=== PATIENT | male | born 1955 | race Caucasian/White ===

== ENCOUNTER → 2023-07-11 14:44 | Outpatient (REF) | payer MEDICARE, MEDICAID, SELFPAY ==
[2023-07-11 17:36] LABS: % Basophils 0.1 % (0-2); % Eosinophils 2.7 % (0-6); % Immature Granulocytes 0.2 % (0-0.5); % Lymphocytes 31.5 % (20.5-51.1); % Monocytes 11.3 % (1.7-9.3); % Neutrophils 54.2 % (42.2-75.2); Absolute Eosinophils 0.2 10^3/uL (0-0.7); Absolute Lymphocytes 2.6 10^3/uL (1.2-3.4); Absolute Monocytes 0.9 10^3/uL (0.1-0.6); Absolute Neutrophils 4.5 10^3/uL (1.4-6.5); Hematocrit 48.9 % (39.0-52.0); Hemoglobin 16.4 g/dL (13.0-18.0); Mean Corp Hgb Conc. 33.5 g/dL (33.0-37.0); Mean Corpuscular Hgb 30.9 pg (27.0-31.0); Mean Corpuscular Volume 92.1 fL (80.0-94.0); Mean Platelet Volume 10.5 fL (7.4-10.4); Nucleated Red Blood Cells % 0 % (-); Platelet Count 189 10^3/uL (130-400); Red Blood Cell Count 5.31 10^6/uL (4.70-6.10); Red Cell Dist. Width 12.8 % (11.5-14.5); White Blood Cell Count 8.3 10^3/uL (4.8-10.8)
[2023-07-11 18:00] LABS: ALT (SGPT) 39 U/L (0-50); AST (SGOT) 44 U/L (17-59); Albumin 4.7 g/dl (3.5-5.0); Alkaline Phosphatase 56 U/L (38-126); Blood Urea Nitrogen 16 mg/dl (9-20); Calcium 10.1 mg/dl (8.4-10.2); Carbon Dioxide 22 mmol/L (22-30); Chloride 105 mmol/L (98-107); Glucose 83 mg/dl (70-99); HDL Cholesterol 52 mg/dl; LDL Cholesterol, Calculated 7 mg/dl; Potassium 4.5 mmol/L (3.5-5.1); Sodium 134 mmol/L (135-145); Total Cholesterol 115 mg/dl (50-199); Total Protein 7.4 g/dl (6.3-8.2); Triglyceride 283 mg/dl (10-149); Very Low Density Lipoprotein 56 mg/dl (0-30); eGFR > 60.00
[2023-07-11 18:28] LABS: PSA, Total - Screen 1.19 ng/ml (0.0-4.0)
== END ==
LOC: RAD 14:44
PROVIDERS: ATTENDING PHYSICIAN Surgery Vascular Surgery; FAMILY PHYSICIAN Family Medicine
DX: I73.9 Peripheral vascular disease, unspecified (principal); I10 Essential (primary) hypertension; E78.00 Pure hypercholesterolemia, unspecified; Z12.5 Encounter for screening for malignant neoplasm of prostate; Z00.00 Encounter for general adult medical examination without abnormal findings
CPT/HCPCS: 36415; 80053; 80061; 85025; 93922; 93925; G0103

== ENCOUNTER 2023-11-22 09:16 | Emergency (ER) | payer MEDICARE, MEDICAID, SELFPAY ==
[2023-11-22 09:17] VITALS: BP 141/84
--- NOTE | 2023-11-22 09:44 | ED.GENMED ---
History of Present Illness
<Abril Villavicencio AMPOULE SEALER - Last Filed: 11/22/23 16:31>
General
Chief Complaint: Chest Pain
Source: patient and spouse
Exam Limitations: none
Time Seen by Provider: 11/22/23 09:29
Nursing documentation reviewed up to this point in time: agreed with
History of Present Illness
History of Present Illness:
68 yo male with h/o HTN, HLD, [place] 03/2022 w stent, diverticulitis with colon resection 1996, fem pop bypass 2010, presents stating for past 4 days hasn't felt 'right.' Per he's been complaining of intermittent 'fluttering, not pain' in left
chest, two days ago, while walking, noted the 'fluttering' again for short period. Yesterday, bringing trash cans up a [address], felt more winded and fatigued than usual.
Today 1 a.m. awakened with mild sweating, 'fluttering' in chest lasting 20 minutes then went back to sleep.
Got up at 6:00 a.m. felt well, at 6:30 walking into another room felt the 'dianne patter' again. Denies actual chest pain. Denies n/v/d/c. Denies abd pain, fever/chills.
He is asymptomatic at this time.
Past History
<Abril Villavicencio AMPOULE SEALER - Last Filed: 11/22/23 16:31>
Past History
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
ED Past Surgical History: Bowel resection (due to diverticulitis), Cardiac (cardiac stent 03/2022) and Other (ischemic right leg with left femoral to right femoral artery bypass in October 2010)
Social History
Tobacco: Former smoker
Alcohol: Occasional
Drug: None
Personal:
Living: with family
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
Family History
Family History: Other (nc)
Review of Systems
<Abril Villavicencio, AMPOULE SEALER - Last Filed: 11/22/23 16:31>
Review of Systems
Allergies reviewed?: Yes
All Other Systems: ROS reviewed and negative except as documented in HPI and ROS
Constitutional: Denies fever, fatigue or chills
Respiratory: Denies trouble breathing
Cardiac: Reports chest pain ('not pain, just fluttering' intermittently), diaphoresis (was 'a little sweaty' 1 am today with the fluttering) and palpitations ('fluttering')
ABD/GI: Reports no symptoms
: Denies dysuria or difficulty voiding
Musculoskeletal: Reports no symptoms
Skin: Reports no symptoms
Neurological: Reports no symptoms
Phy Exam
<Abril Villavicencio, AMPOULE SEALER - Last Filed: 11/22/23 16:31>
Physical Exam
Physical Exam:
GENERAL: No acute distress. A&Ox3.
CONSTITUTIONAL: Afebrile.
EYES: clear, conjunctivae normal
ENMT: moist mucus membranes, Pharynx nl
RESPIRATORY: Regular respirations, nonlabored, lungs clear.
CARDIOVASCULAR: Regular rate and rhythm, no murmurs, no rubs.
GI: Soft, nontender, normal BS
MUSCULOSKELETAL: Moves with ease. Well perfused.
SKIN: Warm, dry, pink
PSYCH: Normal mood and affect. Well kept, interactive and appropriate
NEUROLOGIC: Awake, alert and oriented. No focal neurological deficits
Scores
<Abril Villavicencio, AMPOULE SEALER - Last Filed: 11/22/23 16:31>
Heart Score for Chest Pain Patients
STEMI patient?: Not applicable
Course
<Abril Villavicencio, AMPOULE SEALER - Last Filed: 11/22/23 16:31>
Orders/Labs/Results
Orders:
Orders
11/22/23 09:17
Electrocardiogram (*1) Urgent
Reason for Study: Chest Pain
EKG- Treatment ONCE
11/22/23 09:44
CR Chest - 2 Views Urgent
Comment:
Reason For Exam: chest pain
11/22/23 09:49
Complete Blood Count/With Diff Urgent
Comprehensive Metabolic Panel Urgent
NT-proBNP Urgent
Troponin I Urgent
Abnormal Lab Results
11/22/23
09:49
MCH 31.5 H pg
(27.0-31.0)
Absolute Monos (auto) 0.8 H 10^3/uL
(0.1-0.6)
Monocytes % 11.1 H %
(1.7-9.3)
Glucose 113 H mg/dl
(70-99)
11/22/23 09:49
11/22/23 09:49
Vital Signs
Initial and Last Documented VS:
Initial Vital Signs
Temp Pulse Resp BP Pulse Ox
97.6 F 53 16 141/84 95
11/22/23 09:17 11/22/23 09:17 11/22/23 09:17 11/22/23 09:17 11/22/23 09:17
Last Documented Vital Signs
Temp Pulse Resp BP Pulse Ox
97.6 F 59 14 113/74 95
11/22/23 09:17 11/22/23 12:00 11/22/23 12:00 11/22/23 12:00 11/22/23 12:00
Bdc Manager consulted with Physician
Bdc Manager consulted with physician?: Yes
Name of Physician Consulted: Sudhir
<Edu Peguero MD - Last Filed: 11/22/23 12:56>
Orders/Labs/Results
Orders:
Orders
11/22/23 09:17
Electrocardiogram (*1) Urgent
Reason for Study: Chest Pain
EKG- Treatment ONCE
11/22/23 09:44
CR Chest - 2 Views Urgent
Comment:
Reason For Exam: chest pain
11/22/23 09:49
Complete Blood Count/With Diff Urgent
Comprehensive Metabolic Panel Urgent
NT-proBNP Urgent
Troponin I Urgent
Abnormal Lab Results
11/22/23
09:49
MCH 31.5 H pg
(27.0-31.0)
Absolute Monos (auto) 0.8 H 10^3/uL
(0.1-0.6)
Monocytes % 11.1 H %
(1.7-9.3)
Glucose 113 H mg/dl
(70-99)
11/22/23 09:49
11/22/23 09:49
Vital Signs
Initial and Last Documented VS:
Initial Vital Signs
Temp Pulse Resp BP Pulse Ox
97.6 F 53 16 141/84 95
11/22/23 09:17 11/22/23 09:17 11/22/23 09:17 11/22/23 09:17 11/22/23 09:17
Last Documented Vital Signs
Temp Pulse Resp BP Pulse Ox
97.6 F 59 14 113/74 95
11/22/23 09:17 11/22/23 12:00 11/22/23 12:00 11/22/23 12:00 11/22/23 12:00
<Abril Villavicencio AMPOULE SEALER - Last Filed: 11/22/23 16:31>
MDM/Problems Addressed
Differential Diagnosis Includes:
CO, angina, unstable angina
MDM/Problems Addressed:
68 yo male with h/o HTN, HLD, [place] 03/2022 w stent, diverticulitis with colon resection 1996, fem pop bypass 2010, presents stating for past 4 days hasn't felt 'right.' Per he's been complaining of intermittent 'fluttering, not pain' in left
chest, two days ago, while walking, noted the 'fluttering' again for short period. Yesterday, bringing trash cans up [address], felt more winded and fatigued than usual.
Today 1 a.m. awakened with mild sweating, 'fluttering' in chest lasting 20 minutes then went back to sleep.
Got up at 6:00 a.m. felt well, at 6:30 walking into another room felt the 'dianne patter' again. Denies actual chest pain. Denies n/v/d/c. Denies abd pain, fever/chills.
NAD, pleasant, asymptomatic at this time.
Pt states fluttering is not associated with activity. No exertional CP.
EKG: Sinus bradycardia
CBC: normal
CMP: normal
Troponin WNL
BNP normal
CXR:NAD
11:30 a.m.
Case discussed with Dr. Peguero who evaluated pt
12:[address] Escobar, Survey Questionnaire Designer in and told pt he can go home, he will set him up for a Stress test for next week.
Patient remains symptom-free. Stable for discharge.
Patient ambulated out with normal gait at discharge
Chronic conditions affecting care: HTN, CAD and PVD
<Abril Villavicencio AMPOULE SEALER - Last Filed: 11/22/23 16:31>
*Critical Care Note
Total Time (30-74mins, 75-104mins- exclusive of procedures): Not Applicable
ED Attending Note
<Abril Villavicencio AMPOULE SEALER - Last Filed: 11/22/23 16:31>
-
Portions of this chart may have been created with voice recognition software.� Occasional wrong word or��sound alike� substitutions may have occurred due to the inherent limitations of voice recognition software.
<Edu Peguero MD - Last Filed: 11/22/23 12:56>
ED Attending Note
Patient seen and examined by attending physician: Yes
I performed the substantive portion of visit, reviewed & personally made and approve the management plan that is documented in note by myself or BARBARA.: Yes
ED Attending Note:
68-year-old male episodes of unusual night sweats overnight. In addition shortness of breath with exertion yesterday. Some episodes of heart racing/palpitations recently. No syncope no chest pain. History of cardiac stenting. Symptoms with his
CO were shortness of breath and diaphoresis.
On exam patient is nontoxic no distress. Lungs clear and equal. Heart regular rate and rhythm no murmur. Abdomen soft and nontender. Warm and dry. Perfusing well.
EKG is no acute changes. Troponin is negative.
Impression unusual diaphoresis with some exertional shortness of breath. Symptoms relatively consistent with his previous cardiac issues. Testing in the ER stable. Will ask for cardiac opinion
Discharge Plan
Departure
Patient Disposition: Home (Routine Discharge)
Date of Disposition: 11/22/23
Time of Disposition: 12:56
Patient with high blood pressure during this ER visit?: No
Condition: Good
Discharge Problem:
Atypical chest pain, SANTAMARIA (dyspnea on exertion)
Instructions: Chest Pain, Adult ED, Shortness of Breath, Adult ED
Prescriptions:
No Action
Metamucil Packet
1 packet PO DAILY
lisinopril 10 mg Tablet
10 mg PO DAILY
aspirin 81 mg tablet,chewable
81 mg PO DAILY
metoprolol succinate [Toprol XL] 25 mg tablet extended release 24 hr
25 mg PO QPM
Referrals:
Davian Escobar MD [Active] - Keep scheduled appt
UNKNOWN - PT DOES,NOT KNOW [Family Provider] -
Activity Restrictions/Additional Instructions:
As we discussed, keep the appointment for the stress test for next week, return here immediately for worsening chest pain, chest pain associated with nausea or vomiting, breaking out in a sweat, feeling lightheaded or dizzy or feeling worse in any
way.
Interventions
Interventions:
*Risk Screen - Suicide Last Done: 11/22/23 09:16
*General Assessment Last Done: 11/22/23 09:16
*Neglect/Abuse Screening Last Done: 11/22/23 09:16
ED- Fall Risk Assessment Last Done: 11/22/23 09:16
*Nursing Disposition Last Done: 11/22/23 13:09
ED- Cardiac Assessment Last Done: 11/22/23 09:16
Discharge Date and Time
Discharge Date/Time: 11/22/23 13:09
Print Language: CZECH
[2023-11-22 10:00] VITALS: BP 103/79
[2023-11-22 10:07] LABS: % Basophils 0.1 % (0-2); % Eosinophils 2.3 % (0-6); % Immature Granulocytes 0.3 % (0-0.5); % Lymphocytes 31.4 % (20.5-51.1); % Monocytes 11.1 % (1.7-9.3); % Neutrophils 54.8 % (42.2-75.2); Absolute Eosinophils 0.2 10^3/uL (0-0.7); Absolute Lymphocytes 2.2 10^3/uL (1.2-3.4); Absolute Monocytes 0.8 10^3/uL (0.1-0.6); Absolute Neutrophils 3.9 10^3/uL (1.4-6.5); Hematocrit 45.5 % (39.0-52.0); Hemoglobin 15.9 g/dL (13.0-18.0); Mean Corp Hgb Conc. 34.9 g/dL (33.0-37.0); Mean Corpuscular Hgb 31.5 pg (27.0-31.0); Mean Corpuscular Volume 90.1 fL (80.0-94.0); Mean Platelet Volume 9.7 fL (7.4-10.4); Nucleated Red Blood Cells % 0 % (-); Platelet Count 178 10^3/uL (130-400); Red Blood Cell Count 5.05 10^6/uL (4.70-6.10); Red Cell Dist. Width 13.2 % (11.5-14.5); White Blood Cell Count 7.1 10^3/uL (4.8-10.8)
[2023-11-22 10:19] LABS: ALT (SGPT) 27 U/L (0-50); AST (SGOT) 28 U/L (17-59); Albumin 4.4 g/dl (3.5-5.0); Alkaline Phosphatase 59 U/L (38-126); Blood Urea Nitrogen 13 mg/dl (9-20); Calcium 9.7 mg/dl (8.4-10.2); Carbon Dioxide 23 mmol/L (22-30); Chloride 107 mmol/L (98-107); Glucose 113 mg/dl (70-99); Potassium 4.6 mmol/L (3.5-5.1); Sodium 137 mmol/L (135-145); Total Bilirubin 1.3 mg/dl (0.2-1.3); Total Protein 6.7 g/dl (6.3-8.2); eGFR > 60.00
[2023-11-22 10:30] LABS: NT-proBNP 182 pg/ml; Troponin I < 0.012 ng/ml
[2023-11-22 10:42] VITALS: BP 123/72
[2023-11-22 11:32] VITALS: BP 127/79
[2023-11-22 12:00] VITALS: BP 113/74
--- NOTE | 2023-11-22 14:09 | CON.CAR ---
Consultation
Consultation Request
Date/Time Consultation Requested: November 22, 2023 11 AM
Date/Time Consultation Performed: November 22, 2023 2 PM
Requesting Provider: Emergency room
Performing Provider: Davian Escobar
Reason for Consultation: Chest pain
Medical History
-
Chief Complaint: Chest pain
History of Present Illness:
68-year-old male with history of hypertension, hyperlipidemia, [place] with LAD stent in 2021, diverticulitis with colon resection in 1996, PAD with femoropopliteal bypass in 2010 who presents with 4 days of atypical chest pain. He tells me that over
the last 4 days he feels that his heart has been pounding more than normal. He also has noticed some fluttering in his chest. It seems to have been associated with exertion. Additionally, yesterday when bringing in his trash cans he felt more
dyspneic than normal. Today he awoke at approximately 1 AM with some mild diaphoresis and fluttering in his chest that lasted approximately 20 minutes. He was then able to go back to sleep. He then woke up at 6:30 AM and felt fluttering in his
chest as well as a hard heartbeat in his chest and decided to come to the emergency room. He denies kaylene chest pain, current shortness of breath, or other arrhythmias.
Past Medical History
Past Medical History: Other (hypertension, hyperlipidemia, [place] with LAD stent in 2021, diverticulitis with colon resection in 1996, PAD)
Past Surgical History: Other (colectomy and femoropopliteal bypass )
Social History
Tobacco: Non-Smoker
Alcohol: None
Drug: None
Personal:
Living: With Family
Family History
Family History: Reviewed & Not Pertinent
Allergies / Home Medications
Allergy/AdvReac Type Severity Reaction Status Date / Time
No Known Allergies Allergy Verified 12/29/22 09:42
�Medication �Instructions �Recorded �Confirmed �Type
aspirin 81 mg chewable tablet 81 mg PO DAILY 11/22/23 11/22/23 History
lisinopril 10 mg tablet 10 mg PO DAILY 11/22/23 11/22/23 History
metoprolol succinate 25 mg 25 mg PO QPM 11/22/23 11/22/23 History
tablet,extended release 24 hr
(Toprol XL)
psyllium 1 packet PO DAILY 11/22/23 11/22/23 History
Review of Systems
-
All other systems: Negative unless noted
Physical Exam
Vital Signs
Temp Pulse Resp BP Pulse Ox
97.6 F 59 14 113/74 95
11/22/23 09:17 11/22/23 12:00 11/22/23 12:00 11/22/23 12:00 11/22/23 12:00
Lab Results
11/22/23 09:49
11/22/23 09:49
Troponin I < 0.012 ng/ml 11/22/23 09:49
Lfe-A-Ymcbbjabujl Pept 182 pg/ml 11/22/23 09:49
Physical Exam
General: Well Developed and Well Nourished
HEENT: Normocephalic
Respiratory: Clear and Non Labored Respirations
Cardiac: S1/S2 and Regular Rhythm
GI: Soft
Musculoskeletal: No Clubbing, No Cyanosis and No Edema
Skin: Warm and Dry
Neuro: AO x 3
Impression / Plan
-
68-year-old male with history of hypertension, hyperlipidemia, [place] with LAD stent in 2021, diverticulitis with colon resection in 1996, PAD with femoropopliteal bypass in 2010 who presents with 4 days of atypical chest pain.
Atypical chest pain
-His workup has been unremarkable in the emergency room. He is currently chest pain-free and feeling well. Given his history of CAD and STEMI in 2021 further testing is warranted with initial stress test. I discussed signs and symptoms that would
warrant return to emergency room. Otherwise, we discussed outpatient stress testing with a PET MPI. He is agreeable to this. He will continue on his medications and we will follow-up his stress test. If his stress test is unremarkable with then
evaluate the fluttering with a Holter monitor. Will also plan for follow-up in 1 to 2 weeks as an outpatient.
-Continue aspirin lisinopril metoprolol
Data Reviewed
-
EKG: Tracing Personally Visualized and interpreted (sr [id number])
Medical Tests (Nuc Med, Echo etc): Image Personally Visualized and interpreted
Labs: Labs Reviewed by me
== END 2023-11-22 13:09 | disposition home or self-care (01) ==
LOC: EMR 09:16
PROVIDERS: Registered Nurse; EMERGENCY PHYSICIAN Emergency Medicine; OTHER PHYSICIAN Internal Medicine Cardiovascular Disease
DX: R07.89 Other chest pain (principal); R06.09 Other forms of dyspnea; R00.2 Palpitations; R61 Generalized hyperhidrosis; R53.83 Other fatigue; I10 Essential (primary) hypertension; E78.00 Pure hypercholesterolemia, unspecified; M10.9 Gout, unspecified; I25.10 Atherosclerotic heart disease of native coronary artery without angina pectoris; I73.9 Peripheral vascular disease, unspecified; I45.10 Unspecified right bundle-branch block; K57.92 Diverticulitis of intestine, part unspecified, without perforation or abscess without bleeding; I25.2 Old myocardial infarction; Z79.82 Long term (current) use of aspirin; Z95.5 Presence of coronary angioplasty implant and graft; Z98.0 Intestinal bypass and anastomosis status; Z87.891 Personal history of nicotine dependence
CPT/HCPCS: 99283; 71046; 80053; 83880; 84484; 85025; 93005

== ENCOUNTER 2024-12-30 08:48 | Emergency (ER) | payer MEDICARE, MEDICAID, SELFPAY ==
[2024-12-30 08:50] VITALS: BP 141/80
--- NOTE | 2024-12-30 10:30 | ED.GENMED ---
History of Present Illness
General
Chief Complaint: Skin Problem
Source: patient
Exam Limitations: none
Time Seen by Provider: 12/30/24 10:21
History of Present Illness
History of Present Illness:
69yo right hand dominant male with a history of coronary artery disease and peripheral artery disease presenting for evaluation of a left wrist wound. Patient picks up scrap metal and accidentally sustained a puncture wound with a piece of copper 3
days. He developed swelling afterwards and he was able to express purulence from the area. The swelling has improved over the past 24 hours. He is otherwise asymptomatic and denies any fevers or chills. Last tetanus shot was <5 years ago. No
prior history of MRSA.
Past History
Past History
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
ED Past Surgical History: Bowel resection (due to diverticulitis), Cardiac (cardiac stent 03/2022) and Other (ischemic right leg with left femoral to right femoral artery bypass in October 2010)
Social History
Tobacco: Former smoker
Alcohol: Occasional
Drug: None
Personal:
Living: with family
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
Family History
Family History: Other (nc)
Phy Exam
General Physical Exam
General Presentation: well appearing and no apparent distress
General Skin: warm and dry
General Habitus: normal
General Mental: alert
ENT Exam
ENT Exam: normocephalic
Pulmonary Exam
Pulmonary Exam: no respiratory distress
Neurological Exam
Neurological Exam: alert
Darby Coma Scale
Eye Opening: Spontaneous
Verbal Response: Oriented
Motor Response: Obeys Commands
GCS Total Score: 15
Skin Exam
Skin Exam: warm/dry and other (L wrist: Small area of soft tissue swelling noted to the volar aspect of the wrist with a small overlying wound. Area mildly tender. No fluctuance or erythema noted. ROM normal. 2+ radial pulse.)
Psychiatric Exam
Psychiatric Exam: normal mood/affect
Course
Orders/Labs/Results
Orders:
Orders
12/30/24 10:11
Wrist, Left 3 Views CR [CR Wrist - Left Min 3 Views] Urgent
Comment:
Reason For Exam: punctured by metal
Vital Signs
Initial and Last Documented VS:
Initial Vital Signs
Temp Pulse Resp BP Pulse Ox
98.4 F 60 16 141/80 95
12/30/24 08:50 12/30/24 08:50 12/30/24 08:50 12/30/24 08:50 12/30/24 08:50
Last Documented Vital Signs
Temp Pulse Resp BP Pulse Ox
98.4 F 60 16 141/80 95
12/30/24 08:50 12/30/24 08:50 12/30/24 08:50 12/30/24 08:50 12/30/24 10:33
MDM/Problems Addressed
Differential Diagnosis Includes:
69yoM here with L wrist pain and swelling after sustaining a puncture wound with a piece of copper 3 days ago. Patient reports expressing purulence at home. No f/c. VSS. He is well appearing in no distress. There is a small focal area of swelling to
the volar aspect of the wrist with a small wound. No fluctuance, drainage, or significant erythema noted. ROM of wrist is normal. LUE is neurovascularly intact. Differential diagnosis includes: Puncture wound, abscess, cellulitis no clinical
evidence of NSTI
Wrist x-rays obtained which are negative for retained foreign body. Will cover with Keflex. Supportive care discussed including warm compresses. Strict ED return precautions reviewed including spreading redness or fevers. Patient in agreement
with plan and was discharged in stable condition.
*Pulse Oximetry
SaO2: 95
Oxygen Mode of Delivery: Room air
Patient hypoxic: no
*Critical Care Note
Total Time (30-74mins, 75-104mins- exclusive of procedures): Not Applicable
ED Attending Note
-
Portions of this chart may have been created with voice recognition software.� Occasional wrong word or��sound alike� substitutions may have occurred due to the inherent limitations of voice recognition software.
Discharge Plan
Departure
Patient Disposition: Home (Routine Discharge)
Date of Disposition: 12/30/24
Time of Disposition: 10:33
Patient with high blood pressure during this ER visit?: Yes
Discharge Problem:
Puncture wound of left wrist
Instructions: Taking care of cuts, scrapes, and puncture wounds
Prescriptions:
New
cephalexin 500 mg capsule
500 mg PO Q6H 7 Days Qty: 28 0RF
No Action
Metamucil Packet
1 packet PO DAILY
lisinopril 10 mg Tablet
10 mg PO DAILY
aspirin 81 mg tablet,chewable
81 mg PO DAILY
metoprolol succinate [Toprol XL] 25 mg tablet extended release 24 hr
25 mg PO QPM
Referrals:
UNKNOWN - PT DOES,NOT KNOW [Family Provider]
Activity Restrictions/Additional Instructions:
Take antibiotics as prescribed. Apply warm compresses to affected area.
Please follow-up with your family doctor. Return to the ER with any worsening symptoms including spreading redness or fevers.
Interventions
Interventions:
*Risk Screen - Suicide Last Done: 12/30/24 08:50
*General Assessment Last Done: 12/30/24 08:50
*Neglect/Abuse Screening Last Done: 12/30/24 08:50
*ED COVID-19 Vaccine History Last Done: 12/30/24 10:11
*Nursing Disposition Last Done: 12/30/24 10:39
ED-Skin Assessment Last Done: 12/30/24 10:11
Discharge Date and Time
Discharge Date/Time: 12/30/24 10:39
Print Language: MAORI
== END 2024-12-30 10:39 | disposition home or self-care (01) ==
LOC: EMR 08:48
PROVIDERS: EMERGENCY PHYSICIAN Emergency Medicine
DX: S61.532A Puncture wound without foreign body of left wrist, initial encounter (principal); W26.8XXA Contact with other sharp object(s), not elsewhere classified, initial encounter; I25.10 Atherosclerotic heart disease of native coronary artery without angina pectoris; I10 Essential (primary) hypertension; E78.00 Pure hypercholesterolemia, unspecified; I25.2 Old myocardial infarction; I73.9 Peripheral vascular disease, unspecified; M10.9 Gout, unspecified; Z79.82 Long term (current) use of aspirin; Z95.5 Presence of coronary angioplasty implant and graft; Z87.891 Personal history of nicotine dependence
CPT/HCPCS: 99283; 73110